=== PATIENT | male | born 1950 | race Caucasian/White ===

== ENCOUNTER → 2018-03-11 07:21 | Outpatient (REF) | payer MEDICARE, SELFPAY ==
[2018-03-11 08:49] LABS: Add Manual Diff / Slide Review NO; Basophils Percent Auto 0.6 % (0-2); Eosinophils Percent Auto 6.2 % (2-4); Hematocrit 35.1 % (41-53); Lymphocytes Percent Auto 44.3 % (25-40); Mean Corpuscular HGB Conc 34.1 % (30-36); Mean Corpuscular Hemoglobin 34.4 PG (26-34); Mean Corpuscular Volume 100.9 fL (80-100); Monocytes Percent Auto 10.5 % (3-14); Neutrophils Absolute Auto 2100 /uL (3000-5900); Neutrophils Percent Auto 38.4 % (50-75); Platelet Count 153 X10^3/uL (150-400); Red Blood Cell Count 3.48 X10^6/uL (4.5-5.9); Red Cell Distribution Width 13.9 % (11.6-14.8); White Blood Cell Count 5.4 X10^3/uL (4.5-11.0)
[2018-03-11 09:18] LABS: Alanine Aminotransferase 35 IU/L (21-72); Albumin 2.5 g/dL (3.5-5.0); Albumin Globulin Ratio 0.7 (1.0-2.8); Alkaline Phosphatase 82 U/L (38-126); Aspartate Aminotransferase 57 IU/L (17-59); BUN Creatinine Ratio 21.4 (6-22); Bilirubin Total 1.1 mg/dL (0.2-1.3); Blood Urea Nitrogen 15 mg/dL (9-20); Calcium 8.8 mg/dL (8.4-10.2); Carbon Dioxide 24 mmol/L (22-32); Chloride 110 mmol/L (98-107); Estimated Glomerular Filt Rate > 60.0 mL/min (>60); Globulin 3.6 g/dL (1.7-4.1); Glucose 101 mg/dL (80-110); HEMOLYSIS < 15 (0-50); Potassium 4.1 mmol/L (3.4-5.1); Sodium 141 mmol/L (137-145); Total Protein 6.1 g/dL (6.3-8.2)
== END ==
LOC: LAB 07:21
PROVIDERS: Visit Provider Nurse Practitioner Family
DX: G93.40 Encephalopathy, unspecified (principal); F32.9 Major depressive disorder, single episode, unspecified; I10 Essential (primary) hypertension
CPT/HCPCS: 36415; 80053; 82140; 84443; 85025

== ENCOUNTER → 2018-03-16 07:00 | Outpatient (REF) | payer MEDICARE, MEDICAID, SELFPAY ==
[2018-03-16 09:23] LABS: Free T3, Triiodothyronine Free 2.65 pg/mL (2.77-5.27); Free T4, Direct Thyroxine 1.19 ng/dL (0.78-2.19)
== END ==
LOC: LAB 07:00
PROVIDERS: Visit Provider Internal Medicine
DX: E03.9 Hypothyroidism, unspecified (principal)
CPT/HCPCS: 36415; 84439; 84481

== ENCOUNTER → 2018-03-23 07:51 | Outpatient (REF) | payer MEDICARE, MEDICAID, SELFPAY ==
[2018-03-23 08:10] LABS: INR 1.5 (0.9-1.3); Prothrombin Time 16.7 SECONDS (10.1-12.7)
== END ==
LOC: LAB 07:51
PROVIDERS: Visit Provider Internal Medicine
DX: K72.90 Hepatic failure, unspecified without coma (principal)
CPT/HCPCS: 36415; 85610

== ENCOUNTER → 2018-04-15 07:28 | Outpatient (REF) | payer MEDICARE, MEDICAID, SELFPAY | LOC: LAB 07:28 | PROVIDERS: Visit Provider Internal Medicine | DX: E03.9 Hypothyroidism, unspecified (principal) | CPT/HCPCS: 36415; 82105; 84443 ==

== ENCOUNTER → 2018-04-20 07:07 | Outpatient (REF) | payer MEDICARE, MEDICAID, SELFPAY ==
[2018-04-20 08:41] LABS: INR 1.3 (0.9-1.3); Prothrombin Time 15.3 SECONDS (10.1-12.7)
== END ==
LOC: LAB 07:07
PROVIDERS: Visit Provider Nurse Practitioner Family
DX: K72.90 Hepatic failure, unspecified without coma (principal)
CPT/HCPCS: 36415; 85610

== ENCOUNTER → 2018-05-11 07:37 | Outpatient (REF) | payer MEDICARE, MEDICAID, SELFPAY ==
[2018-05-11 09:01] LABS: INR 1.4 (0.9-1.3); Prothrombin Time 15.8 SECONDS (10.1-12.7)
== END ==
LOC: LAB 07:37
PROVIDERS: Visit Provider Internal Medicine
DX: K72.90 Hepatic failure, unspecified without coma (principal)
CPT/HCPCS: 36415; 85610

== ENCOUNTER → 2018-05-27 07:35 | Outpatient (REF) | payer MEDICARE, MEDICAID, SELFPAY ==
[2018-05-27 08:43] LABS: Thyroid Stimulating Hormone 0.15 uIU/mL (0.47-4.68)
== END ==
LOC: LAB 07:35
PROVIDERS: Visit Provider Nurse Practitioner Family
DX: E03.9 Hypothyroidism, unspecified (principal)
CPT/HCPCS: 36415; 84443

== ENCOUNTER → 2018-06-08 08:02 | Outpatient (REF) | payer MEDICARE, MEDICAID, SELFPAY ==
[2018-06-08 09:04] LABS: INR 1.3 (0.9-1.3); Prothrombin Time 15.3 SECONDS (10.1-12.7)
== END ==
LOC: LAB 08:02
PROVIDERS: Visit Provider Nurse Practitioner Family
DX: K72.90 Hepatic failure, unspecified without coma (principal)
CPT/HCPCS: 36415; 85610

== ENCOUNTER → 2018-06-15 10:17 | Outpatient (REF) | payer MEDICARE, MEDICAID, SELFPAY ==
[2018-06-15 11:34] LABS: BUN Creatinine Ratio 23.8 (6-22); Blood Urea Nitrogen 19 mg/dL (9-20); Calcium 9.9 mg/dL (8.4-10.2); Carbon Dioxide 25 mmol/L (22-32); Chloride 107 mmol/L (98-107); Estimated Glomerular Filt Rate > 60.0 mL/min (>60); Glucose 150 mg/dL (80-110); HEMOLYSIS < 15 (0-50); Potassium 4.3 mmol/L (3.4-5.1); Sodium 139 mmol/L (137-145)
[2018-06-15 11:37] LABS: Add Manual Diff / Slide Review NO; Basophils Absolute Auto 0 /uL (0-100); Basophils Percent Auto 0.9 % (0-2); Eosinophils Absolute Auto 300 /uL (0-450); Eosinophils Percent Auto 6.6 % (2-4); Hematocrit 41.5 % (41-53); Hemoglobin 14.1 g/dL (13.5-17.5); Lymphocytes Absolute Auto 2000 /uL (1100-4500); Mean Corpuscular HGB Conc 34.1 % (30-36); Mean Corpuscular Hemoglobin 33.4 PG (26-34); Mean Corpuscular Volume 98.1 fL (80-100); Monocytes Absolute Auto 500 /uL (0-900); Monocytes Percent Auto 9.7 % (3-14); Neutrophils Absolute Auto 2000 /uL (1500-7000); Neutrophils Percent Auto 41.8 % (50-75); Platelet Count 167 X10^3/uL (150-400); Red Blood Cell Count 4.23 X10^6/uL (4.5-5.9); Red Cell Distribution Width 14.1 % (11.6-14.8); White Blood Cell Count 4.9 X10^3/uL (4.5-11.0)
== END ==
LOC: LAB 10:17
PROVIDERS: Visit Provider Internal Medicine
DX: K72.90 Hepatic failure, unspecified without coma (principal)
CPT/HCPCS: 36415; 80048; 82140; 85025

== ENCOUNTER → 2018-06-18 15:52 | Outpatient (REF) | payer MEDICARE, MEDICAID, SELFPAY ==
[2018-06-18 16:15] LABS: Alanine Aminotransferase 39 IU/L (21-72); Albumin 2.7 g/dL (3.5-5.0); Albumin Globulin Ratio 0.8 (1.0-2.8); Alkaline Phosphatase 74 U/L (38-126); Aspartate Aminotransferase 47 IU/L (17-59); Bilirubin Total 0.9 mg/dL (0.2-1.3); Bilirubin Unconjugated 0.6 mg/dL (0.0-1.1); Globulin 3.3 g/dL (1.7-4.1); HEMOLYSIS < 15 (0-50)
== END ==
LOC: LAB 15:52
PROVIDERS: Visit Provider Internal Medicine
DX: K74.60 Unspecified cirrhosis of liver (principal)
CPT/HCPCS: 80076

== ENCOUNTER → 2018-07-08 08:03 | Outpatient (REF) | payer MEDICARE, MEDICAID, SELFPAY ==
[2018-07-08 09:14] LABS: Thyroid Stimulating Hormone 0.25 uIU/mL (0.47-4.68)
== END ==
LOC: LAB 08:03
PROVIDERS: Visit Provider Nurse Practitioner Family
DX: E03.9 Hypothyroidism, unspecified (principal)
CPT/HCPCS: 36415; 84443

== ENCOUNTER → 2018-08-12 07:16 | Outpatient (REF) | payer MEDICARE, MEDICAID, SELFPAY ==
[2018-08-12 07:48] LABS: INR 1.3 (0.9-1.3); Prothrombin Time 14.6 SECONDS (10.1-12.7)
== END ==
LOC: LAB 07:16
PROVIDERS: Visit Provider Internal Medicine
DX: K91.82 Postprocedural hepatic failure (principal)
CPT/HCPCS: 36415; 85610

== ENCOUNTER → 2020-06-21 13:04 | Outpatient (CLI) | payer MEDICARE, SELFPAY ==
--- NOTE | 2020-06-21 13:17 | DI.ECHO.S_ITS ---
[facility]---------+ [facility] +---------+ : : [address] : [address] : : : : [id number] : : : : Phone: [phone]---------+ Echocardiogram Report + + :Name: BARON TERAN Study Date: 06/21/2020 Height: 69 in : :[facility] ReadingLocation: Weight: 275 lb : : Gender: Male BSA: 2.4 m2 : :: 1950 Age: 69 yrs BP: 133/84 mmHg: :Reason For Study: ATRIAL FIBRILLATION : :Ordering Physician: LEX, : :MARY BHAKTA Performed By: Angela Grider : :Referring: MARY BURNETT MD : + + Interpretation Summary The left ventricle is normal in size. Left ventricular systolic function appears normal without focal wall motion abnormalities. The ejection fraction is estimated to be 55-60%. Diastolic function could not be accurately assessed due to atrial fibrillation. The right ventricle is normal in size and function. Pulmonary artery pressures cannot be estimated because of the lack of a measurable TR jet velocity but the IVC suggests a CVP of around 3 mmHg. The left atrium is mildly dilated. Right atrial size is normal. There is no significant valvular heart disease. The aortic root is normal size. Procedure: A two-dimensional transthoracic echocardiogram with color flow and Doppler was performed. The study quality was technically adequate. There is no prior echocardiogram noted for this patient. The patient was in atrial fibrillation with heart rates between 64-81 bpm during the exam. Left Ventricle: The left ventricle is normal in size. Left ventricular wall thickness is mildly increased. Left ventricular systolic function appears normal without focal wall motion abnormalities. The ejection fraction is estimated to be 55-60%. Diastolic function could not be accurately assessed due to atrial fibrillation. Right Ventricle: The right ventricle is normal in size and function. Atria: The left atrium is mildly dilated. Right atrial size is normal. There is no Doppler evidence for an interatrial shunt. Mitral Valve: The mitral valve is normal in structure and function. There is trace mitral regurgitation. Aortic Valve: The aortic valve opens well. There is no aortic valve stenosis. No aortic regurgitation is present. Tricuspid Valve: The tricuspid valve is normal in structure and function. There is trace tricuspid regurgitation. Pulmonary artery pressures cannot be estimated because of the lack of a measurable TR jet velocity but the IVC suggests a CVP of around 3 mmHg. Pulmonic Valve: The pulmonic valve is not well seen, but is grossly normal. There is no pulmonic valvular regurgitation. There is no significant valvular heart disease. Great Vessels: The aortic root is normal size. The aortic arch is at the upper limits of normal in size. The IVC is of normal diameter and collapses greater than 50% with a sniff. This suggests a low right atrial pressure of 3 mm Hg. Pericardium/ Pleura There is no pericardial effusion. There is no pleural effusion. MMode/2D Measurements & Calculations LVIDd: 5.0 cm LVOT diam: 2.0 cm LVIDs: 3.5 cm Ao root diam: 3.6 cm FS: 29.2 % asc Aorta Diam: 3.4 cm EPSS: 0.76 cm Ao Arch Diam (Prox Trans): 2.9 cm IVSd: 1.2 cm LVPWd: 1.0 cm LV schaeffer. diameter/BSA (cm/m^2): 2.1 LV sys. diameter/BSA (cm/m^2): 1.5 LA A2 area: 28.5 cm2 RA long axis: 5.7 cm LA A4 area: 19.6 cm2 RA area: 17.9 cm2 LA length (vol): 5.5 cm RA vol: 48.1 ml LA vol: 85.4 ml RA : 20.3 ml/m2 LA vol index: 36.1 ml/m2 IVC diam: 1.3 cm RVD1 (basal): 2.7 cm TAPSE: 2.1 cm Doppler Measurements & Calculations Ao V2 max: 100.8 cm/sec LVOT Max Donald: 82.8 cm/sec Ao V2 mean: 71.0 cm/sec LV V1 max P.7 mmHg Ao max P.1 mmHg LV V1 VTI: 16.7 cm Ao mean P.2 mmHg HEATEHR(I,D): 2.5 cm2 Ao V2 VTI: 19.7 cm HEATHER(V,D): 2.5 cm2 sev ratio: 0.85 HEATHER indexed to BSA (cm^2/m^2): 1.1 MV E max donald: 81.1 cm/sec PA V2 max: 56.8 cm/sec MV A max donald: 1.8 cm/sec PA V2 mean: 36.2 cm/sec MV E/A: 45.8 PA mean P.61 mmHg Med Peak E' Donald: 10.4 cm/sec PA pr(Accel): 44.7 mmHg E/E' med: 7.8 Lat Peak E' Donald: 12.5 cm/sec E/E' lat: 6.5 E/e' average: 7.1 MV dec time: 0.20 sec SV(OT): 50.0 ml Reading Physician:08:17 PM
== END ==
PROVIDERS: Referring Provider Internal Medicine; Visit Provider Internal Medicine
DX: I48.91 Unspecified atrial fibrillation (principal)
CPT/HCPCS: 93306